=== PATIENT | female | born 1935 | race Asian ===

== ENCOUNTER 2023-10-14 07:22 | Outpatient (CLI) | payer MEDICARE, MEDICAID ==
[2023-10-14 07:46] LABS: TOTAL HEMOGLOBIN 14.3 G/dl (12.0-16.0)
== END 2023-10-14 23:59 | disposition home or self-care (01) ==
LOC: RT 07:22
PROVIDERS: ATTEND Internal Medicine Cardiovascular Disease
DX: R06.02 Shortness of breath (principal); Z79.899 Other long term (current) drug therapy
CPT/HCPCS: 85018; 94010; 94727; 94729

== ENCOUNTER 2024-03-02 10:36 | Outpatient (CLI) | payer MEDICARE, MEDICAID ==
[2024-03-02 11:41] VITALS: PULSE 66; RESP 16; O2SAT 98
== END 2024-03-02 23:59 | disposition home or self-care (01) ==
LOC: RT 10:36
PROVIDERS: ATTEND Internal Medicine Cardiovascular Disease
DX: R06.02 Shortness of breath (principal); Z79.899 Other long term (current) drug therapy
CPT/HCPCS: 94010; 94727; 94729; 94760